=== PATIENT | male | born 1985 | race Caucasian/White ===

== ENCOUNTER 2024-05-20 14:01 | Inpatient (IN) | payer MEDICAID ==
[~2024-05-20] VITALS: Ht 185.4 cm; Wt 108.8 kg
[~2024-05-20 14:01] MED LIST: BUPR1FIL3 PO; CLON2TAB11 PO; HYDR50CA5 PO; NO HOME MEDS
[2024-05-20 14:49] LABS: MEAN PLATELET VOLUME 9.1 FL (7.4-10.4)
[2024-05-20 14:51] LABS: BASOPHILS % (AUTO) 0.1 % (0-1); EOSINOPHILS % (AUTO) 0.1 % (0-6); HEMATOCRIT 57.7 % (42.0-52.0); LYMPHOCYTES # (AUTO) 0.8 X10'3 (1.1-4.8); LYMPHOCYTES % (AUTO) 9.6 % (21-51); MEAN CORPUSCULAR HEMOGLOBIN 33.8 PG (27.0-31.0); MEAN CORPUSCULAR HGB CONC 34.1 g/dL (33.0-36.5); MEAN CORPUSCULAR VOLUME 98.9 FL (78-98); MONOCYTES # (AUTO) 1.3 X10'3 (0-0.9); MONOCYTES % (AUTO) 16.5 % (2-12); NEUTROPHILS # (AUTO) 5.9 X10'3 (1.8-7.7); NEUTROPHILS % (AUTO) 73.7 % (42-75); PLATELET COUNT 254 X10'3 (140-440); RED BLOOD COUNT 5.84 X10'6 (4.70-6.10); RED CELL DISTRIBUTION WIDTH 16.2 % (11.5-14.5); WHITE BLOOD COUNT 8.1 X10'3 (4.5-11.0)
[2024-05-20 14:53] LABS: ALANINE AMINOTRANSFERASE 32 U/L (12-78); ALBUMIN/GLOBULIN RATIO 0.8 (1.1-1.5); ALKALINE PHOSPHATASE 93 IU/L (46-116); ANION GAP 12 (8-16); ASPARTATE AMINO TRANSFERASE 26 U/L (10-37); BILIRUBIN,TOTAL 1.7 MG/DL (0.1-1.0); BLOOD UREA NITROGEN 20 MG/DL (7-18); BUN/CREATININE RATIO 9.5 (10.0-20.0); CALCIUM 9.4 MG/DL (8.5-10.1); CHLORIDE 91 MMOL/L (99-107); CREATININE 2.11 MG/DL (0.60-1.10); GLUCOSE 172 MG/DL (70-104); LIPASE 107 U/L (16-77); POTASSIUM 3.8 MMOL/L (3.5-5.1); SODIUM 132 MMOL/L (135-145); TOTAL CARBON DIOXIDE 28.6 MMOL/L (24-32); TOTAL PROTEIN 9.2 G/DL (6.4-8.2); eCRCL 53 ML/MIN; eGFR 35 ML/MIN
[2024-05-20 14:55] LABS: HEMOGLOBIN 19.7 g/dl (14.0-17.9)
[2024-05-20 15:22] LABS: ANISOCYTOSIS 1+; PLATELET ESTIMATE NORMAL; TOTAL CELLS COUNTED 100
[2024-05-20 15:23] LABS: TOXIC GRANULATION 2+; TOXIC VACUOLATION 1+
[2024-05-20 16:50] LABS: CLARITY,URINE SLIGHTLY CLOUDY (Clear); COLOR,URINE AMBER (Yellow)
[2024-05-20 16:52] LABS: UA COLLECTION TYPE CLN CATCH MIDSTREAM
[2024-05-20 16:56] LABS: BACTERIA,URINE FEW /HPF (Neg); RBC,URINE 0-2 /HPF (0-2); WBC,URINE 0-4 /HPF (0-4)
[2024-05-20 16:57] LABS: HYALINE CASTS >30 /LPF (NEGATIVE); MUCUS STRANDS MANY /LPF (Neg); SQUAMOUS EPITHELIAL CELL,UR FEW /LPF (FEW); TRANSITIONAL EPI CELLS,URINE FEW /HPF
[2024-05-20] MEDS: metoclopramide 5 mg/ml inj IV ONE (17:24)
[2024-05-20] MEDS: diphenhydrAMINE 50 mg/ml inj IV ONE (17:24)
[2024-05-20] MEDS: LORazepam 2 mg/ml vial IV ONE (17:24)
[2024-05-20] MEDS ORDERED: bisacodyl 10mg suppository rectal RC PRN (18:25)
[2024-05-20] MEDS ORDERED: potassium Cl 20 mEq SR tablet PO PRN ×2 (18:25)
[2024-05-20] MEDS ORDERED: mag hydrox/Alum hydrox/simeth 30ml oral suspension PO PRN (18:25)
[2024-05-20] MEDS ORDERED: magnesium sulf-water 2g/50mL 50 ML IV PRN (18:25)
[2024-05-20] MEDS ORDERED: albuterol 2.5 MG/3 ML nebule NEB PRN (18:25)
[2024-05-20] MEDS ORDERED: ipratropium/albuterol 3ml nebule NEB PRN (18:25)
[2024-05-20] MEDS ORDERED: acetaminophen 650mg rectal suppository RC PRN (18:25)
[2024-05-20] MEDS ORDERED: ondansetron/PF 4mg/2ml inj IV PRN (18:25)
[2024-05-20] MEDS ORDERED: HYDROmorphone/PF 0.2 MG/ML SYRINGE IV PRN (18:25)
[2024-05-20 19:12] LABS: PRO BRAIN NATRIURETIC PEPTIDE 312 PG/ML (0-125)
[2024-05-20] MEDS: normal saline 1000ml 1,000 ML IV SCH ×2 (19:32→20:49)
[2024-05-20 19:37] LABS: PROTHROMBIN TIME 37.8 SECONDS (9.0-12.0)
[2024-05-20] MEDS: piperacillin/tazo 3.375gm/50ml 50 ML IV ONE (19:41)
[2024-05-20] MEDS: K and/or MAG REPLACEMENT MC SCH (20:00)
[2024-05-20] MEDS: heparin, porcine 5000 units/ml vial SQ SCH (20:00)
[2024-05-20] MEDS: phytonadione inj. 10 MG in normal saline 100ml IV soln 100 ML IV ONE (20:18)
[2024-05-20] MEDS: PERFLUTREN PROTEIN-A MICROSPHR (Optison) 0.22 MG/ML 3ML VIAL IV ONE (20:41)
[2024-05-20 20:44] VITALS: PULSE 121; RESP 16; O2SAT 99
[2024-05-20] MEDS: LORazepam 2 mg/ml vial IV PRN (21:18)
[2024-05-20] MEDS: HYDROmorphone inj. 0.5 MG/0.5 ML DISP.SYRIN IV PRN (21:19)
[2024-05-20 21:46] LABS: INR 1.2 INR; PROTHROMBIN TIME 12.4 SECONDS (9.0-12.0)
[2024-05-20 22:00] LABS: URINE AMPHETAMINE SCREEN NEGATIVE (Neg); URINE BARBITUATE SCREEN NEGATIVE (Neg); URINE BENZODIAZEPINES SCREEN NEGATIVE (Neg); URINE CANNABINOID SCREEN POSITIVE (Neg); URINE COCAINE SCREEN NEGATIVE (Neg); URINE METHADONE SCREEN NEGATIVE (Neg); URINE OPIATE SCREEN NEGATIVE (Neg); URINE PHENCYCLIDINE SCREEN NEGATIVE (Neg)
[2024-05-21] VITALS (21 sets, daily range): BP systolic 117–164; BP diastolic 75–101; PULSE 70–108; RESP 14–21; TEMP 97.2–97.6; O2SAT 93–100
[2024-05-21] MEDS: piperacillin/tazo 4.5gm/100ml 100 ML IV SCH (00:12)
[2024-05-21 02:25] LABS: BASOPHILS % (AUTO) 0.1 % (0-1); EOSINOPHILS % (AUTO) 0.1 % (0-6); HEMATOCRIT 48.5 % (42.0-52.0); HEMOGLOBIN 16.2 g/dl (14.0-17.9); LYMPHOCYTES # (AUTO) 0.9 X10'3 (1.1-4.8); LYMPHOCYTES % (AUTO) 11.1 % (21-51); MEAN CORPUSCULAR HEMOGLOBIN 33.2 PG (27.0-31.0); MEAN CORPUSCULAR HGB CONC 33.4 g/dL (33.0-36.5); MEAN CORPUSCULAR VOLUME 99.5 FL (78-98); MEAN PLATELET VOLUME 8.9 FL (7.4-10.4); MONOCYTES # (AUTO) 1.6 X10'3 (0-0.9); MONOCYTES % (AUTO) 20.3 % (2-12); NEUTROPHILS # (AUTO) 5.4 X10'3 (1.8-7.7); NEUTROPHILS % (AUTO) 68.4 % (42-75); PLATELET COUNT 196 X10'3 (140-440); RED BLOOD COUNT 4.87 X10'6 (4.70-6.10); RED CELL DISTRIBUTION WIDTH 16.3 % (11.5-14.5); WHITE BLOOD COUNT 7.9 X10'3 (4.5-11.0)
[2024-05-21 02:33] LABS: INR 1.1 INR; PROTHROMBIN TIME 11.8 SECONDS (9.0-12.0)
[2024-05-21 02:36] LABS: ALBUMIN 2.8 G/DL (3.4-5.0); ALBUMIN/GLOBULIN RATIO 0.7 (1.1-1.5); ANION GAP 8 (8-16); BILIRUBIN,TOTAL 1.3 MG/DL (0.1-1.0); BLOOD UREA NITROGEN 26 MG/DL (7-18); CHLORIDE 100 MMOL/L (99-107); GLUCOSE 126 MG/DL (70-104); MAGNESIUM 1.2 MG/DL (1.5-2.4); POTASSIUM 3.4 MMOL/L (3.5-5.1); SODIUM 136 MMOL/L (135-145); TOTAL CARBON DIOXIDE 28.5 MMOL/L (24-32); TOTAL PROTEIN 6.7 G/DL (6.4-8.2); eCRCL 55 ML/MIN; eGFR 37 ML/MIN
[2024-05-21 02:37] LABS: ALANINE AMINOTRANSFERASE 24 U/L (12-78); ALKALINE PHOSPHATASE 59 IU/L (46-116); ASPARTATE AMINO TRANSFERASE 19 U/L (10-37); LIPASE 65 U/L (16-77)
[2024-05-21 02:48] LABS: CALCIUM 7.3 MG/DL (8.5-10.1)
[2024-05-21] MEDS: potassium Cl 40MEQ/1/2NS 520ml 520 ML IV PRN (08:01)
[2024-05-21] MEDS: nicotine 21mg patch - 24 hr TD SCH (08:05)
[2024-05-21 08:25] LABS: PRO BRAIN NATRIURETIC PEPTIDE 182 PG/ML (0-125)
[2024-05-21] MEDS: magnesium sulf-water 4G/100mL 100 ML IV PRN (12:10)
[2024-05-21] MEDS ORDERED: OMEP20CA16 PO (12:40)
[2024-05-21] MEDS ORDERED: POTA-366 PO (12:40)
[2024-05-21] MEDS ORDERED: SACU1TAB4 PO (12:40)
[2024-05-21] MEDS ORDERED: EMPA10TA PO (12:40)
[2024-05-21] MEDS ORDERED: CARV12.549 PO (12:40)
[2024-05-21] MEDS ORDERED: fentaNYL/PF 50MCG/1 ML 2ML syringe IV PRN ×2 (14:20)
[2024-05-21] MEDS ORDERED: ondansetron/PF 4mg/2ml inj IV PRN (14:20)
[2024-05-21] MEDS ORDERED: hydrALAZINE 20mg/ml inj. IV PRN (14:20)
[2024-05-21] MEDS ORDERED: labetalol 20mg/4ml (5mg/ml) syringe IV PRN (14:20)
[2024-05-21] MEDS ORDERED: LIDOcaine 2% (20mg/ml) 5ml vial ONE (14:27)
[2024-05-21] MEDS ORDERED: dexamethasone sod phosphate 4mg/ml inj. ONE (14:27)
[2024-05-21] MEDS ORDERED: rocuronium 10mg/ml inj IV ONE (14:27)
[2024-05-21] MEDS ORDERED: propofol inj 20 ML IV ONE (14:27)
[2024-05-21] MEDS ORDERED: ondansetron/PF 4mg/2ml inj ONE (14:28)
[2024-05-21] MEDS ORDERED: sevoflurane 250ml liquid IH ONE (14:40)
[2024-05-21] MEDS ORDERED: MIDAZolam 1 MG/ML 5ML VIAL ONE (14:46)
[2024-05-21] MEDS ORDERED: fentaNYL/PF 50MCG/1 ML 2ML syringe ONE ×2 (14:46→14:51)
[2024-05-21] MEDS: BUPIVAcaine 2.5mg/ml inj 50ml vial (contains preservative) SQ ONE (15:19)
[2024-05-21] MEDS ORDERED: sugammadex 200mg/2ml injection IV ONE (15:33)
[2024-05-21] MEDS: HYDROmorphone/PF 0.2 MG/ML SYRINGE IV PRN ×2 (16:08→16:26)
[2024-05-21] MEDS: BUPIVAcaine 2.5mg/ml inj 50ml vial (contains preservative) ONE (17:01)
[2024-05-21] MEDS: ringers solution, lacted 1,000 ML IV SCH (17:02)
[2024-05-22 02:00] VITALS: BP 141/78; PULSE 91; RESP 16; TEMP 98.8; O2SAT 96
[2024-05-22 06:00] VITALS: BP 127/87; PULSE 96; RESP 18; TEMP 98.6; O2SAT 96
[2024-05-22 06:13] LABS: BASOPHILS % (AUTO) 0.2 % (0-1); EOSINOPHILS % (AUTO) 0 % (0-6); HEMATOCRIT 45.6 % (42.0-52.0); HEMOGLOBIN 14.9 g/dl (14.0-17.9); LYMPHOCYTES # (AUTO) 0.5 X10'3 (1.1-4.8); LYMPHOCYTES % (AUTO) 8.2 % (21-51); MEAN CORPUSCULAR HEMOGLOBIN 32.7 PG (27.0-31.0); MEAN CORPUSCULAR HGB CONC 32.6 g/dL (33.0-36.5); MEAN CORPUSCULAR VOLUME 100.1 FL (78-98); MONOCYTES # (AUTO) 1.1 X10'3 (0-0.9); MONOCYTES % (AUTO) 18.5 % (2-12); NEUTROPHILS # (AUTO) 4.2 X10'3 (1.8-7.7); NEUTROPHILS % (AUTO) 73.1 % (42-75); PLATELET COUNT 170 X10'3 (140-440); RED BLOOD COUNT 4.55 X10'6 (4.70-6.10); RED CELL DISTRIBUTION WIDTH 15.8 % (11.5-14.5); WHITE BLOOD COUNT 5.8 X10'3 (4.5-11.0)
[2024-05-22 06:17] LABS: INR 1.1 INR
[2024-05-22 06:30] LABS: ALANINE AMINOTRANSFERASE 15 U/L (12-78); ALBUMIN 2.9 G/DL (3.4-5.0); ALBUMIN/GLOBULIN RATIO 0.7 (1.1-1.5); ALKALINE PHOSPHATASE 49 IU/L (46-116); ANION GAP 8 (8-16); ASPARTATE AMINO TRANSFERASE 12 U/L (10-37); BILIRUBIN,TOTAL 1.2 MG/DL (0.1-1.0); BLOOD UREA NITROGEN 26 MG/DL (7-18); BUN/CREATININE RATIO 17.2 (10.0-20.0); CALCIUM 8.1 MG/DL (8.5-10.1); CHLORIDE 99 MMOL/L (99-107); CREATININE 1.51 MG/DL (0.60-1.10); GLUCOSE 129 MG/DL (70-104); LIPASE 71 U/L (16-77); MAGNESIUM 2.1 MG/DL (1.5-2.4); PHOSPHORUS 3.6 MG/DL (2.3-4.5); SODIUM 136 MMOL/L (135-145); TOTAL CARBON DIOXIDE 29.4 MMOL/L (24-32); TOTAL PROTEIN 6.9 G/DL (6.4-8.2); eCRCL 73 ML/MIN; eGFR 51 ML/MIN
[2024-05-22 07:09] LABS: NUCLEATED RED BLOOD CELLS 1 /100WBC (0-0); PLATELET ESTIMATE NORMAL; TOTAL CELLS COUNTED 100
[2024-05-22 10:00] VITALS: BP 154/85; PULSE 98; RESP 16; TEMP 97.9; O2SAT 98
[2024-05-22 11:45] VITALS: RESP 16; O2SAT 97
[2024-05-22] MEDS ORDERED: LORazepam 1 MG tablet PO PRN (18:25)
[2024-05-24] MEDS ORDERED: LORazepam 2 mg/ml vial IV PRN (18:25)
[2024-05-24] MEDS ORDERED: LORazepam 1 MG tablet PO PRN (18:25)
== END 2024-05-22 17:34 | disposition home or self-care (01) | DRG 710 ==
LOC: ER 14:02 → ED HOLD 18:34 → ORTHO 4S 05-21 07:38
PROVIDERS: ADMIT Family Medicine; ATTEND Family Medicine
PROC: 0DJD4ZZ Inspection of Lower Intestinal Tract, Percutaneous Endoscopic Approach (ICD-10-PCS; principal; 2024-05-21 14:40)
DX: A41.9 Sepsis, unspecified organism (principal); N17.0 Acute kidney failure with tubular necrosis; I50.9 Heart failure, unspecified; N18.4 Chronic kidney disease, stage 4 (severe); D75.1 Secondary polycythemia; F41.9 Anxiety disorder, unspecified; E86.0 Dehydration; F10.239 Alcohol dependence with withdrawal, unspecified; F11.90 Opioid use, unspecified, uncomplicated; F15.90 Other stimulant use, unspecified, uncomplicated; Z79.899 Other long term (current) drug therapy; Z87.891 Personal history of nicotine dependence; Z82.49 Family history of ischemic heart disease and other diseases of the circulatory system
CPT/HCPCS: 36415; 71045; 74018; 74176; 80053; 80305; 81001; 82948; 83605; 83690; 83735; 83880; 84100; 84145; 85007; 85025; 85610; 87040; 87081; 93005; 93308; 94760; 96374; 96375; 99285; A4615; A4618; A6258; A7000; C1758; G0378; J1100; J1170; J1200; J1644; J2060; J2250; J2405; J2543; J2704; J2765; J3010; J3430; J3475; J3480; J3490; J7030; J7120